=== PATIENT | female | born 1980 | race American Indian/Alaskan Native ===

== ENCOUNTER 2019-03-12 06:17 | Day surgery (SDC) | payer MEDICARE, OTHER ==
[~2019-03-12 06:17] MED LIST: VANCOMYCIN/NS 1 GM/250 ML 1 GM/250 ML BAG IV SCH
[2019-03-12] MEDS ORDERED: ONDANSETRON 4 MG ODT TAB PO PRN (06:46)
[2019-03-12] MEDS ORDERED: HYDROmorphone 1 MG/1 ML INJ IV PRN (06:46)
--- NOTE | 2019-03-12 06:52 | Anesthesia Day of Surgery ---
Anesthesia Day of Surgery - Day of Surgery Patient Examined: Yes Patient H&P Reviewed: Yes Patient is NPO: Yes
--- NOTE | 2019-03-12 06:52 | Anesthesia Consultation ---
Anesthesia Consult and Med Hx Date of service: 03/12/19 - Airway Anesthetic Teeth Evaluation: Good ROM Head & Neck: Adequate Mental/Hyoid Distance: Adequate Mallampati Class: Class II Intubation Access Assessment: Probably Good - Pulmonary Exam CTA: Yes - Cardiac Exam Cardiac Exam: RRR - Pre-Operative Health Status ASA Pre-Surgery Classification: ASA3 Proposed Anesthetic Plan: General, MAC - Pulmonary Hx Smoking: Yes (1/2PPD SINCE '; STOPPED(02/15/2019) FOR SX) Hx Asthma: Yes (PRN INH) - Central Nervous System Hx Back Pain: Yes (NECK-PRN FLEXERIL) Hx Psychiatric Problems: No - Other Systems Hx Alcohol Use: Yes (WINE COOLER) Hx Substance Use: No Hx Cancer: No - Additional Comments Anesthesia Medical History Comments: HIV positive
[2019-03-12] MEDS ORDERED: LACTATED RINGERS 1,000 ML IV SCH (07:00)
[2019-03-12] MEDS ORDERED: BACTERIOSTATIC SODIUM CHLORIDE 0.9% 30 ML VIAL INFILTRATI ONE (07:00)
[2019-03-12] MEDS ORDERED: MIDAZOLAM 2 MG/2 ML INJ IV NR (07:00)
[2019-03-12] MEDS ORDERED: FAMOTIDINE 20 MG TAB PO NR (07:00)
[2019-03-12] MEDS ORDERED: LIDOCAINE MPF (2%) 20 MG/1 ML VIAL 5 ML ONE (07:36)
[2019-03-12] MEDS ORDERED: PROPOFOL 200 MG/20 ML VIAL IV ONE (07:36)
[2019-03-12] MEDS ORDERED: HYDROmorphone 1 MG/1 ML INJ ONE (07:36)
[2019-03-12] MEDS ORDERED: BUPIVACAINE/PF (0.25%) 2.5 MG/ML 30 ML VIAL INFILTRATI ONE (07:38)
[2019-03-12] MEDS ORDERED: LIDOCAINE (1%) 10 MG/1 ML VIAL 20 ML MDV ONE (07:38)
[2019-03-12] MEDS ORDERED: GLYCOPYRROLATE 0.4 MG/2 ML INJ ONE (08:38)
[2019-03-12] MEDS ORDERED: BUPIVACAINE/PF (0.5%) 5 MG/1 ML 30 ML VIAL INFILTRATI ONE ×2 (08:53)
[2019-03-12] MEDS ORDERED: LIDOCAINE (1%) 10 MG/1 ML VIAL 20 ML MDV INFILTRATI ONE ×2 (08:53)
[2019-03-12] MEDS ORDERED: PHENYLEPHRINE/NS 1,000 MCG/10 ML SYRINGE (OR USE) IV ONE (08:59)
[2019-03-12] MEDS ORDERED: ONDANSETRON 4 MG/2 ML INJ ONE (09:00)
--- NOTE | 2019-03-12 09:47 | Operative Report ---
Operative Report Operative Report: Date of Service: March 12, 2019 Preoperative diagnosis: Right Breast Mass - Intraductal Papilloma Postoperative diagnosis: Same Procedure: Right Breast Mass - Intraductal Papilloma Excisional Biopsy Surgeon: Xiomara Rowe M.D. Performance Test Consultant: None Anesthesia: General Findings: Right breast tissue with clip Complications: None Drains: None Estimated blood loss: Minimal Disposition: PACU in good condition Indications for operative procedure: This is a 38-year-old, lady with right breast Intraductal Papilloma. Patient had undergone a recall from her screening mammogram done on 11/20/2018 for a right breast asymmetry. The recall right breast diagnostic mammogram and ultrasound performed on 12/26/2018 showed on mammogram a 5 mm mass in the inferior medial right breast in the posterior depth, 5-6 cm from the nipple. Ultrasound showed a hypoechoic oval, solid mass measuring 0.7 x 0.3 x 0.6 cm. BI-RADS 4. Biopsy performed on 01/03/2019 revealed a right breast intraductal papilloma with florid usual hyperplasia fibrocystic changes with apocrine metaplasia. The pathology results were discussed with the patient who stated she understood and wished to proceed with the excision of the mass. The procedure of right breast mass excisional biopsy was discussed in great detail, including the risks, benefits, alternatives and indications. These included, but were not limited to, bleeding, infection, pain, seroma/hematoma formation, duct distortion, breast asymmetry. Patient was given ample opportunity to ask questions which were answered. She verbalized understanding. An informed consent for a right breast mass excisional biopsy was obtained. Procedure in detail: The patient was taken to the operating room and was placed supine on the operating table. General anesthesia was administered. The right breast and chest were prepped and draped in the normal sterile operative fashion. Timeout was performed. Under ultrasound guidance the mass was localized and borders marked on the skin. A skin crease incision was marked and made. Flaps were raised superficially anterior to the mass. Mass was dissected free from surrounding tissue. The specimen was marked and submitted to pathology for evaluation. Lidocaine/Marcaine mix was infiltrated into surrounding tissues. Hemostasis was obtained. The wound was irrigated and dried. Tissue was approximated with 3-0 vicryl. The skin was closed with 4-0 monocryl suture. Dermabond was placed over incision. Patient tolerated the procedure well. She was awakened, extubated without incident and transferred to the Recovery Room in stable condition.
--- NOTE | 2019-03-12 09:52 | Short Stay Summary ---
Short Stay Documentation Date of service: 03/12/19 - History H&P: obtained from office - Allergies and Medications Current Medications: Allergies diphenhydramine [From Benadryl] Allergy (Verified 03/05/19 12:15) Anaphylaxis Penicillins Allergy (Verified 03/05/19 12:15) Itching Home Medications Medication Instructions Recorded Confirmed Last Taken Type Abacavir/Dolutegravir/Lamivudi 1 each PO QDAY 03/05/19 03/05/19 03/11/19 10:00 History [Triumeq 600-50-300 mg Tablet] Cyclobenzaprine [Flexeril] 10 mg PO QHS 03/05/19 03/05/19 01/28/19 10:00 History Diclofenac Sodium 75 mg PO BID PRN 03/05/19 03/05/19 01/28/19 10:00 History medroxyPROGESTERone ACETATE 150 mg IM Q3M 03/05/19 03/05/19 03/11/19 10:00 History [Medroxyprogesterone Acetate] HYDROcodone/APAP 5-325 [[place] 1 each PO Q6HR PRN #12 tablet 03/12/19 Unknown Rx 5/325] Active Medications Famotidine (Pepcid) 20 mg PO PREOP NR Stop: 03/12/19 23:45 Last Admin: 03/12/19 07:10 Dose: 20 mg Documented by: Hydromorphone HCl (Dilaudid) 0.25 mg IV Q10MIN PRN PRN Reason: Pain, Moderate (4-6) Stop: 03/12/19 15:36 Vancomycin HCl (Vancomycin/Ns 1 Gm/250 Ml) 1 gm in 250 mls @ 125 mls/hr IV PREOP MAYLIN; Protocol Lactated Ringer's (Lactated Ringers) 1,000 mls @ 100 mls/hr IV DIRECT MAYLIN Last Admin: 03/12/19 07:10 Dose: 100 mls/hr Documented by: Midazolam HCl (Versed) 2 mg IV PREOP NR Stop: 03/12/19 23:59 Last Admin: 03/12/19 07:12 Dose: 2 mg Documented by: Ondansetron HCl (Zofran Odt) 4 mg PO ONCE PRN PRN Reason: Nausea And Vomiting - Brief post op/procedure progress note Date of procedure: 03/12/19 Pre-op diagnosis: Right Breast Intraductal Papilloma Post-op diagnosis: same Procedure: Right Breast Mass - Intraductal Papilloma Excisional Biopsy Anesthesia: WATSONA Surgeon: MITUL REDDY Estimated blood loss: minimal Pathology: list Specimen disposition: to lab Condition: stable - Disposition Condition at discharge: Stable Disposition: DC- TO HOME OR SELFCARE Short Stay Discharge Plan Activity: no driving until cleared by PCP Weight Bearing Status: Full Weight Bearing Diet: regular Wound: keep clean and dry, per your surgeon's advice (Can shower after 48 hours; no sitting in standing water - no baths, no pools, no lakes etc) Special Instructions: no heavy lifting Follow up with: MITUL REDDY MD [Staff Physician] - 7 Days Forms: Outpatient Surgery DC Inst. Prescriptions: HYDROcodone/APAP 5-325 [Rogers 5/325] 1 each PO Q6HR PRN #12 tablet PRN Reason: Pain
[2019-03-12 10:32] VITALS: BP 125/75
--- NOTE | 2019-03-12 11:23 | Mammography Report ---
Single right breast specimen radiograph image submitted Indication: Right breast surgical excision Findings/Impression: A single specimen radiograph of reported right breast tissue was submitted for documentation purposes. Images demonstrate a coil shaped biopsy marker located centrally within the tissue. Please see operative notes for specifics. Signer Name: Familia Llanes MD Signed: 03/12/2019 11:18 AM Workstation Name: [id number]
--- NOTE | 2019-03-12 14:19 | Post Anesthesia Evaluation ---
- Post Anesthesia Evaluation Patient Participated: Yes Airway Patent: Yes Stable Respiratory Function: Yes Temp > 96.8F: Yes Pain Manageable: Yes Adequeate Hydration: Yes Anesthesia Complications: No
== END 2019-03-12 10:55 | disposition home or self-care (01) ==
LOC: OR 06:17
PROVIDERS: ATTEND Surgery
DX: D24.1 Benign neoplasm of right breast (principal); N60.81 Other benign mammary dysplasias of right breast; N64.89 Other specified disorders of breast; J45.909 Unspecified asthma, uncomplicated; F17.210 Nicotine dependence, cigarettes, uncomplicated; Z98.51 Tubal ligation status; Z72.89 Other problems related to lifestyle; Z80.0 Family history of malignant neoplasm of digestive organs; Z98.890 Other specified postprocedural states; Z88.0 Allergy status to penicillin; Z79.899 Other long term (current) drug therapy; Z88.8 Allergy status to other drugs, medicaments and biological substances
CPT/HCPCS: 19120; 76098; 88307; J1170; J2250; J2370; J2405; J2704; J3370; J7120

== ENCOUNTER 2020-03-14 18:21 | Observation (INO) | payer MEDICARE ==
--- NOTE | 2020-03-14 18:30 | Event Note ---
ED Screening Note Date of service: 03/14/20 Time: 18:28 ED Screening Note: c/o syncopal episode today states symptoms of epigastric pain and chest pain prior to episode +hormones-on depo denies leg pain/swelling/ cough/hemoptysis, recent long travel, SOB, or hx of DVT/PE This initial assessment/diagnostic orders/clinical plan/treatment(s) is/are subject to change based on patients health status, clinical progression and re- assessment by fellow clinical providers in the ED. Further treatment and workup at subsequent clinical providers discretion. Patient/guardian urged not to elope from the ED as their condition may be serious if not clinically assessed and managed. Initial orders include: labs ekg CXR
[2020-03-14 19:08] LABS: Bacteria,Urine 1+ /HPF (Negative); Bilirubin,Urine NEG (Negative); Blood,Urine NEG (Negative); Color,Urine Yellow (Yellow); Mucus,Urine FEW /HPF
[2020-03-14 19:19] LABS: Basophils # (Auto) 0.1 K/mm3 (0.0-0.1); Basophils % (Auto) 1.1 % (0.0-1.8); Eosinophils # (Auto) 0.1 K/mm3 (0.0-0.4); Eosinophils % (Auto) 2.1 % (0.0-4.3); Hematocrit 40.6 % (30.3-42.9); Hemoglobin 13.5 gm/dl (10.1-14.3); Lymphocytes # (Auto) 1.9 K/mm3 (1.2-5.4); Lymphocytes % (Auto) 36.8 % (13.4-35.0); Mean Corpuscular HGB Conc 33 % (30-34); Mean Corpuscular Volume 105 fl (79-97); Monocytes # (Auto) 0.6 K/mm3 (0.0-0.8); Monocytes % (Auto) 11.9 % (0.0-7.3); Platelet Count 189 K/mm3 (140-440); Red Blood Count 3.87 M/mm3 (3.65-5.03); Red Cell Distribution Width 12.7 % (13.2-15.2)
[2020-03-14 19:29] LABS: Alanine Aminotransferase 35 units/L (7-56); Albumin 4.4 g/dL (3.9-5); BUN/Creatinine Ratio 11; Blood Urea Nitrogen 10 mg/dL (7-17); Calcium 8.8 mg/dL (8.4-10.2); Hemolysis Index 6
--- NOTE | 2020-03-14 19:37 | XRay Report ---
CHEST 2 VIEWS INDICATION / CLINICAL INFORMATION: syncope. COMPARISON: None available. FINDINGS: SUPPORT DEVICES: None. HEART / MEDIASTINUM: No significant abnormality. LUNGS / PLEURA: Hyperinflated lungs. No pneumothorax. ADDITIONAL FINDINGS: No significant additional findings. IMPRESSION: The lungs are hyperinflated. No other significant abnormality is seen Signer Name: Danny Castrejon MD FACR Signed: 03/14/2020 7:32 PM Workstation Name: [id number]
--- NOTE | 2020-03-14 21:16 | Emergency Department Report ---
ED Syncope HPI - General Chief Complaint: Syncope Stated Complaint: PASSED OUT Time Seen by Provider: 03/14/20 20:33 Source: patient Exam Limitations: no limitations - History of Present Illness Initial Comments: Patient is a 39-year-old female that presents emergency room with complaints of a syncopal episode. Patient states her episode happened at 5 PM. Patient states she was sitting in her boyfriend's car at the [employer] drive-through and became lightheaded, dizzy, nauseous and diaphoretic and the patient then passed out. Patient states she was just sitting in the passenger seat waiting for her food. Patient states she had not eaten since 5 PM the previous day. Patient states she is not drinking at a water as well. Patient states that her boyfriend told her that she stared off into space and was shaking during the syncopal episode. Patient states she does not have a history of seizures. Patient denies chest pain or shortness of breath. Patient states she is feeling pretty good at this point. Patient denies recent travel. Patient denies recent international travel. Patient denies exposure to the novel coronavirus. Patient denies sick contacts. Patient denies fever and chills. Patient denies cough. Patient denies diarrhea. Patient denies coming in contact with anybody with symptoms of the novel coronavirus. Patient states she has history of HIV and she is compliant with her medications. Timing/Prior Episodes: no prior history, single episode today Precipitating Factors: Positive: diaphoresis, lightheadedness, nausea Context: sitting Loss of Consciousness: brief (seconds) Current Symptoms: back to normal - Related Data Allergies/Adverse Reactions: Allergies diphenhydramine [From Benadryl] Allergy (Verified 03/14/20 18:25) Anaphylaxis Penicillins Allergy (Verified 03/14/20 18:25) Itching Home Medications: Ambulatory Orders Abacavir/Dolutegravir/Lamivudi [Triumeq 600-50-300 mg Tablet] 1 each PO QDAY 03/05/19 Cyclobenzaprine [Flexeril] 10 mg PO QHS 03/05/19 Diclofenac Sodium 75 mg PO BID PRN 03/05/19 medroxyPROGESTERone ACETATE [Medroxyprogesterone Acetate] 150 mg IM Q3M 03/05/19 HYDROcodone/APAP 5-325 [[place] 5/325] 1 each PO Q6HR PRN #12 tablet 03/12/19 ED Review of Systems ROS: Stated complaint: PASSED OUT Other details as noted in HPI Constitutional: denies: chills, fever Eyes: denies: eye pain, eye discharge, vision change ENT: denies: ear pain, throat pain Respiratory: denies: cough, shortness of breath, wheezing Cardiovascular: denies: chest pain, palpitations Endocrine: no symptoms reported Gastrointestinal: nausea. denies: abdominal pain, vomiting, diarrhea Genitourinary: denies: urgency, dysuria, discharge Musculoskeletal: denies: back pain, joint swelling, arthralgia Skin: denies: rash, lesions Neurological: as per HPI. denies: headache, weakness, paresthesias Psychiatric: denies: anxiety, depression Hematological/Lymphatic: denies: easy bleeding, easy bruising ED Past Medical Hx - Past Medical History Previous Medical History?: Yes Hx Asthma: Yes (PRN INH) Hx HIV: Yes - Surgical History Past Surgical History?: Yes Hx Breast Surgery: Yes (RIGHT CLIP) Additional Surgical History: Tubal ligation - Family History Family history: no significant - Social History Smoking Status: Current Every Day Smoker Substance Use Type: Alcohol - Medications Home Medications: Home Medications Medication Instructions Recorded Confirmed Last Taken Type Abacavir/Dolutegravir/Lamivudi 1 each PO QDAY 03/05/19 03/05/19 03/11/19 10:00 History [Triumeq 600-50-300 mg Tablet] Cyclobenzaprine [Flexeril] 10 mg PO QHS 03/05/19 03/05/19 01/28/19 10:00 History Diclofenac Sodium 75 mg PO BID PRN 03/05/19 03/05/19 01/28/19 10:00 History medroxyPROGESTERone ACETATE 150 mg IM Q3M 03/05/19 03/05/19 03/11/19 10:00 History [Medroxyprogesterone Acetate] HYDROcodone/APAP 5-325 [[place] 1 each PO Q6HR PRN #12 tablet 03/12/19 Unknown Rx 5/325] ED Physical Exam - General Limitations: No Limitations General appearance: alert, in no apparent distress - Head Head exam: Present: atraumatic, normocephalic - Eye Eye exam: Present: normal appearance, PERRL Pupils: Present: normal accommodation - ENT ENT exam: Present: mucous membranes moist - Neck Neck exam: Present: normal inspection - Respiratory Respiratory exam: Present: normal lung sounds bilaterally. Absent: respiratory distress, wheezes, rales - Cardiovascular Cardiovascular Exam: Present: regular rate, normal rhythm. Absent: systolic murmur, diastolic murmur, rubs, gallop - GI/Abdominal GI/Abdominal exam: Present: soft, normal bowel sounds. Absent: distended, tenderness, guarding - Rectal Rectal exam: Present: deferred - Extremities Exam Extremities exam: Present: normal inspection, full ROM. Absent: tenderness - Back Exam Back exam: Present: normal inspection, full ROM. Absent: tenderness - Neurological Exam Neurological exam: Present: alert, oriented X3, CN II-XII intact, normal gait. Absent: abnormal gait - Psychiatric Psychiatric exam: Present: normal affect, normal mood - Skin Skin exam: Present: warm, dry, intact, normal color. Absent: rash ED Course Vital Signs 03/14/20 03/14/20 03/14/20 17:36 18:33 19:08 Temperature 98.2 F Pulse Rate 78 Respiratory 20 Rate Blood Pressure 129/87 132/86 Blood Pressure [Left] O2 Sat by Pulse 95 100 94 Oximetry 03/14/20 03/14/20 03/14/20 20:02 22:01 22:55 Temperature Pulse Rate 78 Respiratory 15 Rate Blood Pressure 127/82 127/82 Blood Pressure 127/82 [Left] O2 Sat by Pulse 100 100 100 Oximetry 03/14/20 03/14/20 03/14/20 23:00 23:11 23:21 Temperature Pulse Rate Respiratory Rate Blood Pressure 132/86 127/82 127/82 Blood Pressure [Left] O2 Sat by Pulse 100 100 100 Oximetry 03/14/20 03/14/20 03/14/20 23:31 23:41 23:51 Temperature Pulse Rate Respiratory Rate Blood Pressure 127/82 127/82 127/82 Blood Pressure [Left] O2 Sat by Pulse 100 100 100 Oximetry 03/15/20 03/15/20 03/15/20 00:01 00:11 00:21 Temperature Pulse Rate Respiratory Rate Blood Pressure 127/82 127/82 127/82 Blood Pressure [Left] O2 Sat by Pulse 100 100 99 Oximetry - Reevaluation(s) Reevaluation #1: I discussed all results with patient. I discussed plan of care with patient. Patient agrees with plan of care and admission. Patient to be admitted to the hospitalist service. 03/14/20 23:42 - Consultations Consultation #1: Hospitalist consulted for admission. Hospitalist to admit patient. 03/14/20 23:42 ED Medical Decision Making - Lab Data Result diagrams: 03/14/20 18:50 03/14/20 18:50 - EKG Data -: EKG Interpreted by Me EKG shows normal: sinus rhythm, axis, intervals, QRS complexes, ST-T waves Rate: normal - Radiology Data Radiology results: report reviewed, image reviewed interpreted by me: Chest x-ray: No pneumonia, no pneumothorax, no foreign body, no osseous fi ndings, no acute findings CHEST 2 VIEWS INDICATION / CLINICAL INFORMATION: syncope. COMPARISON: None available. FINDINGS: SUPPORT DEVICES: None. HEART / MEDIASTINUM: No significant abnormality. LUNGS / PLEURA: Hyperinflated lungs. No pneumothorax. ADDITIONAL FINDINGS: No significant additional findings. IMPRESSION: The lungs are hyperinflated. No other significant abnormality is seen CT HEAD/BRAIN WO CON INDICATION / CLINICAL INFORMATION: Syncope and seizure-like activity. TECHNIQUE: All CT scans at this location are performed using CT dose reduction for ALARA by means of automated exposure control. COMPARISON: None available. FINDINGS: The ventricular system is normal in size and configuration. No focal lesion or mass effect is seen. There is no evidence of intracranial hemorrhage or major vessel occlusion. The calvarium is intact. The visualized paranasal sinuses and mastoid air cells are clear. IMPRESSION: No acute abnormality. - Medical Decision Making Patient is a 39-year-old female presents emergency room with syncopal episode and seizure-like activity. Patient stated that her boyfriend witnessed her sitting in the passenger seat going unconscious and having seizure-like activity. Patient had labs done which were essentially unremarkable. Patient had a head CT which was negative for acute finding. Patient had a chest x-ray which was negative for acute findings. Patient given Keppra and fluids in the ER. Since the patient had possible seizure-like activity, the patient will be admitted to the hospital service for further evaluation treatment and rule out seizure episode. - Differential Diagnosis Seizure-like activity, syncope, dehydration, electrolyte imbalance Critical Care Time: Yes Critical care time in (mins) excluding proc time.: 35 Critical care attestation.: If time is entered above; I have spent that time in minutes in the direct care of this critically ill patient, excluding procedure time. Critical Care Time: 35 minutes ED Disposition Clinical Impression: Seizure-like activity Syncope Qualifiers: Syncope type: unspecified Qualified Code(s): R55 - Syncope and collapse Disposition: DC-09 OP ADMIT IP TO THIS HOSP Is pt being admited?: Yes Does the pt Need Aspirin: No Condition: Critical Time of Disposition: 23:42
[2020-03-14] MEDS ORDERED: levETIRAcetam 1000 MG/NS 0.75% 1,000 MG/100 ML BAG IV ONE (22:06)
[2020-03-14] MEDS ORDERED: SODIUM CHLORIDE 0.9% 1000 ML 1,000 ML IV ONE (22:06)
--- NOTE | 2020-03-14 23:34 | Cat Scan Report ---
CT HEAD/BRAIN WO CON INDICATION / CLINICAL INFORMATION: Syncope and seizure-like activity. TECHNIQUE: All CT scans at this location are performed using CT dose reduction for ALARA by means of automated e xposure control. COMPARISON: None available. FINDINGS: The ventricular system is normal in size and configuration. No focal lesion or mass effect is seen. T here is no evidence of intracranial hemorrhage or major vessel occlusion. The calvarium is intact. Th e visualized paranasal sinuses and mastoid air cells are clear. IMPRESSION: No acute abnormality. Signer Name: Sukhjinder Dimas MD Signed: 03/14/2020 11:30 PM Workstation Name: [id number]
[2020-03-15] MEDS ORDERED: ACETAMINOPHEN 325 MG TAB PO PRN (00:29)
[2020-03-15] MEDS ORDERED: LORazepam 2 MG/ML VIAL IV PRN (00:32)
--- NOTE | 2020-03-15 00:38 | History and Physical Report ---
History of Present Illness Date of examination: 03/15/20 Date of admission: 03/14/20 23:45 Chief complaint: Syncope Questionable seizure History of present illness: 39-year-old female was brought to emergency room with complaints of a syncopal episode and questionable seizure. Patient states she was sitting in her boyfriend's car at the [employer] drive-through at 5 PM and became lightheaded, dizzy, nauseous and diaphoretic and the patient then passed out. Patient states she was just sitting in the passenger seat waiting for her food. Patient states she had not eaten since 5 PM the previous day. Patient states she is not drinking at a water as well. Patient states that her boyfriend told her that she stared off into space and was shaking during the syn copal episode. Patient states she does not have a history of seizures. Patient denies chest pain or shortness of breath. Initial CT scan of the head shows no acute intracranial abnormality. Medications and Allergies Allergies Allergy/AdvReac Type Severity Reaction Status Date / Time diphenhydramine Allergy Anaphylaxis Verified 03/14/20 18:25 [From Benadryl] Penicillins Allergy Itching Verified 03/14/20 18:25 Home Medications Medication Instructions Recorded Confirmed Last Taken Type Abacavir/Dolutegravir/Lamivudi 1 each PO QDAY 03/05/19 03/05/19 03/11/19 10:00 History [Triumeq 600-50-300 mg Tablet] Cyclobenzaprine [Flexeril] 10 mg PO QHS 03/05/19 03/05/19 01/28/19 10:00 History Diclofenac Sodium 75 mg PO BID PRN 03/05/19 03/05/19 01/28/19 10:00 History medroxyPROGESTERone ACETATE 150 mg IM Q3M 03/05/19 03/05/19 03/11/19 10:00 History [Medroxyprogesterone Acetate] HYDROcodone/APAP 5-325 [[place] 1 each PO Q6HR PRN #12 tablet 03/12/19 Unknown Rx 5/325] Review of Systems Cardiovascular: syncope, lightheadedness Neurological: seizures Exam - Constitutional Vitals: Temp Pulse Resp BP Pulse Ox 98.2 F 78 15 127/82 99 03/14/20 18:33 03/14/20 20:02 03/14/20 20:02 03/15/20 00:21 03/15/20 00:21 General appearance: Present: no acute distress, well-nourished - EENT Eyes: Present: PERRL ENT: hearing intact, clear oral mucosa - Neck Neck: Present: supple, normal ROM - Respiratory Respiratory effort: normal Respiratory: bilateral: CTA - Cardiovascular Heart Sounds: Present: S1 & S2. Absent: rub, click - Extremities Extremities: pulses symmetrical, No edema Peripheral Pulses: within normal limits - Abdominal General gastrointestinal: Present: soft, non-tender, non-distended, normal bowel sounds Female genitourinary: Present: normal - Integumentary Integumentary: Present: clear, warm, dry - Musculoskeletal Musculoskeletal: gait normal, strength equal bilaterally - Psychiatric Psychiatric: appropriate mood/affect, intact judgment & insight - Neurologic Neurologic: CNII-XII intact, moves all extremities HEART Score - HEART Score Troponin: Troponin T < 0.010 ng/mL (0.00-0.029) 03/14/20 18:50 Results - Labs CBC & Chem 7: 03/14/20 18:50 03/14/20 18:50 Labs: Laboratory Last Values WBC 5.1 K/mm3 (4.5-11.0) 03/14/20 18:50 RBC 3.87 M/mm3 (3.65-5.03) 03/14/20 18:50 Hgb 13.5 gm/dl (10.1-14.3) 03/14/20 18:50 Hct 40.6 % (30.3-42.9) 03/14/20 18:50 MCV 105 fl (79-97) H 03/14/20 18:50 MCH 35 pg (28-32) H 03/14/20 18:50 MCHC 33 % (30-34) 03/14/20 18:50 RDW 12.7 % (13.2-15.2) L 03/14/20 18:50 Plt Count 189 K/mm3 (140-440) 03/14/20 18:50 Lymph % (Auto) 36.8 % (13.4-35.0) H 03/14/20 18:50 [place] % (Auto) 11.9 % (0.0-7.3) H 03/14/20 18:50 Eos % (Auto) 2.1 % (0.0-4.3) 03/14/20 18:50 Baso % (Auto) 1.1 % (0.0-1.8) 03/14/20 18:50 Lymph # (Auto) 1.9 K/mm3 (1.2-5.4) 03/14/20 18:50 [place] # (Auto) 0.6 K/mm3 (0.0-0.8) 03/14/20 18:50 Eos # (Auto) 0.1 K/mm3 (0.0-0.4) 03/14/20 18:50 Baso # (Auto) 0.1 K/mm3 (0.0-0.1) 03/14/20 18:50 Seg Neutrophils % 48.1 % (40.0-70.0) 03/14/20 18:50 Seg Neutrophils # 2.5 K/mm3 (1.8-7.7) 03/14/20 18:50 Sodium 138 mmol/L (137-145) 03/14/20 18:50 Potassium 3.4 mmol/L (3.6-5.0) L 03/14/20 18:50 Chloride 105.3 mmol/L (98-107) 03/14/20 18:50 Carbon Dioxide 23 mmol/L (22-30) 03/14/20 18:50 Anion Gap 13 mmol/L 03/14/20 18:50 BUN 10 mg/dL (7-17) 03/14/20 18:50 Creatinine 0.9 mg/dL (0.6-1.2) 03/14/20 18:50 Estimated GFR > 60 ml/min 03/14/20 18:50 BUN/Creatinine Ratio 11 % 03/14/20 18:50 Glucose 79 mg/dL (65-100) 03/14/20 18:50 POC Glucose 59 mg/dL (70-105) L 03/14/20 18:30 Calcium 8.8 mg/dL (8.4-10.2) 03/14/20 18:50 Total Bilirubin 0.40 mg/dL (0.1-1.2) 03/14/20 18:50 AST 65 units/L (5-40) H 03/14/20 18:50 ALT 35 units/L (7-56) 03/14/20 18:50 Alkaline Phosphatase 47 units/L (35-129) 03/14/20 18:50 Troponin T < 0.010 ng/mL (0.00-0.029) 03/14/20 18:50 Total Protein 7.1 g/dL (6.3-8.2) 03/14/20 18:50 Albumin 4.4 g/dL (3.9-5) 03/14/20 18:50 Albumin/Globulin Ratio 1.6 % 03/14/20 18:50 Urine Color Yellow (Yellow) 03/14/20 18:52 Urine Turbidity Slightly-cloudy (Clear) 03/14/20 18:52 Urine pH 6.0 (5.0-7.0) 03/14/20 18:52 Ur Specific [place] 1.023 (1.003-1.030) 03/14/20 18:52 Urine Protein 30 mg/dl mg/dL (Negative) 03/14/20 18:52 Urine Glucose (UA) Neg mg/dL (Negative) 03/14/20 18:52 Urine Ketones Neg mg/dL (Negative) 03/14/20 18:52 Urine Blood Neg (Negative) 03/14/20 18:52 Urine Nitrite Neg (Negative) 03/14/20 18:52 Urine Bilirubin Neg (Negative) 03/14/20 18:52 Urine Urobilinogen 2.0 mg/dL (<2.0) 03/14/20 18:52 Ur Leukocyte Esterase Neg (Negative) 03/14/20 18:52 Urine WBC (Auto) 6.0 /HPF (0.0-6.0) 03/14/20 18:52 Urine RBC (Auto) 1.0 /HPF (0.0-6.0) 03/14/20 18:52 U Epithel Cells (Auto) 5.0 /HPF (0-13.0) 03/14/20 18:52 Urine Bacteria (Auto) 1+ /HPF (Negative) 03/14/20 18:52 Urine Mucus Few /HPF 03/14/20 18:52 - Imaging and Cardiology Chest x-ray: image reviewed CT Scan - head: image reviewed Assessment and Plan - Patient Problems (1) Syncope Current Visit: Yes Status: Acute Qualifiers: Syncope type: unspecified Qualified Code(s): R55 - Syncope and collapse Plan to address problem: Admit the patient to the medical telemetry. Cardiac diet. aspirin 81 mg p.o. daily. Lipitor 40 mg p.o. daily. D5 half-normal saline at the rate of 100 cc/h . Due to the serial cardiac enzyme. We also do a echocardiogram. If needed will consult cardiology. Recheck CBC BMP in the morning. Heparin 5000 units subcu every 8 hours for DVT prophylaxis and Protonix 40 mg p.o. daily for GI prophylaxis. (2) Seizure-like activity Current Visit: Yes Status: Acute Plan to address problem: We will put the patient on cardiac diet. D5 half-normal saline at the rate of 100 cc/h. Initial CT scan of the head shows no acute intracranial abnormality. Ativan 1 mg IV every 4 hours as needed. We also order EEG, echocardiogram and MRI of the brain without contrast. Patient is on seizure precaution. If needed will consult neurology in the morning.
[2020-03-15] MEDS ORDERED: D5W/0.45% NACL 1,000 ML IV SCH (01:00)
[2020-03-15 04:53] LABS: Basophils # (Auto) 0.1 K/mm3 (0.0-0.1); Basophils % (Auto) 0.9 % (0.0-1.8); Eosinophils # (Auto) 0.1 K/mm3 (0.0-0.4); Eosinophils % (Auto) 2.3 % (0.0-4.3); Hematocrit 36.1 % (30.3-42.9); Hemoglobin 12.3 gm/dl (10.1-14.3); Lymphocytes # (Auto) 1.3 K/mm3 (1.2-5.4); Lymphocytes % (Auto) 22.2 % (13.4-35.0); Mean Corpuscular HGB Conc 34 % (30-34); Mean Corpuscular Volume 104 fl (79-97); Monocytes # (Auto) 0.6 K/mm3 (0.0-0.8); Monocytes % (Auto) 10.2 % (0.0-7.3); Platelet Count 162 K/mm3 (140-440); Red Blood Count 3.46 M/mm3 (3.65-5.03); Red Cell Distribution Width 12.7 % (13.2-15.2)
[2020-03-15 05:53] LABS: BUN/Creatinine Ratio 9; Blood Urea Nitrogen 8 mg/dL (7-17); Calcium 8.4 mg/dL (8.4-10.2); Hemolysis Index 6
[2020-03-15] MEDS: HEPARIN 5,000 UNIT/1 ML VIAL SUB-Q SCH ×2 (06:35→13:38)
--- NOTE | 2020-03-15 08:30 | Progress Note ---
Assessment and Plan Assessment and plan: (1) Syncope Current Visit: Yes Status: Acute Qualifiers: Syncope type: unspecified Qualified Code(s): R55 - Syncope and collapse Plan to address problem: Admit the patient to the medical telemetry. Cardiac diet. aspirin 81 mg p.o. daily. Lipitor 40 mg p.o. daily. D5 half-normal saline at the rate of 100 cc/h. Due to the serial cardiac enzyme. We also do a echocardiogram. If needed will consult cardiology. Recheck CBC BMP in the morning. Heparin 5000 units subcu every 8 hours for DVT prophylaxis and Protonix 40 mg p.o. daily for GI prophylaxis. (2) Seizure-like activity Current Visit: Yes Status: Acute Plan to address problem: We will put the patient on cardiac diet. D5 half-normal saline at the rate of 100 cc/h. Initial CT scan of the head shows no acute intracranial abnormality. Ativan 1 mg IV every 4 hours as needed. We also order EEG, echocardiogram and MRI of the brain without contrast. Patient is on seizure precaution. If needed will consult neurology in the morning. 03/15/2020 -Blood sugar was 59 on admission and because of syncopal episode is likely hypoglycemia -We will follow the results ordered by admitting physician -Possible discharge today after echo is done History Interval history: Patient was seen and evaluated this morning Patient does not have any syncopal episode after admission, no dizziness. No seizure-like activity. Hospitalist Physical - Physical exam Narrative exam: Not in cardiopulmonary distress. The patient appeared well nourished and normally developed. Vital signs as documented. Head exam is unremarkable. No scleral icterus . Neck is without jugular venous distension, thyromegaly, or carotid bruits. Lungs are clear to auscultation. Cardiac exam reveals regular rate and Rhythm. Abdominal exam reveals normal bowel sounds, nontender, no organomegaly. Extremities are nonedematous and both femoral and pedal pulses are normal. PROFESSOR OF VISUAL ARTS: Alert and oriented 3. No focal weakness. - Constitutional Vitals: Temp Pulse Resp BP Pulse Ox 98.9 F 85 18 123/82 100 03/15/20 07:45 03/15/20 07:45 03/15/20 07:45 03/15/20 07:45 03/15/20 07:45 General appearance: Present: no acute distress, well-nourished HEART Score - HEART Score Troponin: Troponin T < 0.010 ng/mL (0.00-0.029) 03/15/20 06:10 Results - Labs CBC & Chem 7: 03/15/20 04:32 03/15/20 04:32 Labs: Laboratory Last Values WBC 5.8 K/mm3 (4.5-11.0) 03/15/20 04:32 RBC 3.46 M/mm3 (3.65-5.03) L 03/15/20 04:32 Hgb 12.3 gm/dl (10.1-14.3) 03/15/20 04:32 Hct 36.1 % (30.3-42.9) 03/15/20 04:32 MCV 104 fl (79-97) H 03/15/20 04:32 MCH 35 pg (28-32) H 03/15/20 04:32 MCHC 34 % (30-34) 03/15/20 04:32 RDW 12.7 % (13.2-15.2) L 03/15/20 04:32 Plt Count 162 K/mm3 (140-440) 03/15/20 04:32 Lymph % (Auto) 22.2 % (13.4-35.0) 03/15/20 04:32 [place] % (Auto) 10.2 % (0.0-7.3) H 03/15/20 04:32 Eos % (Auto) 2.3 % (0.0-4.3) 03/15/20 04:32 Baso % (Auto) 0.9 % (0.0-1.8) 03/15/20 04:32 Lymph # (Auto) 1.3 K/mm3 (1.2-5.4) 03/15/20 04:32 [place] # (Auto) 0.6 K/mm3 (0.0-0.8) 03/15/20 04:32 Eos # (Auto) 0.1 K/mm3 (0.0-0.4) 03/15/20 04:32 Baso # (Auto) 0.1 K/mm3 (0.0-0.1) 03/15/20 04:32 Seg Neutrophils % 64.4 % (40.0-70.0) 03/15/20 04:32 Seg Neutrophils # 3.7 K/mm3 (1.8-7.7) 03/15/20 04:32 Sodium 145 mmol/L (137-145) D 03/15/20 04:32 Potassium 3.9 mmol/L (3.6-5.0) 03/15/20 04:32 Chloride 114.0 mmol/L (98-107) H 03/15/20 04:32 Carbon Dioxide 20 mmol/L (22-30) L 03/15/20 04:32 Anion Gap 15 mmol/L 03/15/20 04:32 BUN 8 mg/dL (7-17) 03/15/20 04:32 Creatinine 0.9 mg/dL (0.6-1.2) 03/15/20 04:32 Estimated GFR > 60 ml/min 03/15/20 04:32 BUN/Creatinine Ratio 9 % 03/15/20 04:32 Glucose 87 mg/dL (65-100) 03/15/20 04:32 POC Glucose 59 mg/dL (70-105) L 03/14/20 18:30 Calcium 8.4 mg/dL (8.4-10.2) 03/15/20 04:32 Total Bilirubin 0.40 mg/dL (0.1-1.2) 03/14/20 18:50 AST 65 units/L (5-40) H 03/14/20 18:50 ALT 35 units/L (7-56) 03/14/20 18:50 Alkaline Phosphatase 47 units/L (35-129) 03/14/20 18:50 Troponin T < 0.010 ng/mL (0.00-0.029) 03/15/20 06:10 Total Protein 7.1 g/dL (6.3-8.2) 03/14/20 18:50 Albumin 4.4 g/dL (3.9-5) 03/14/20 18:50 Albumin/Globulin Ratio 1.6 % 03/14/20 18:50 Urine Color Yellow (Yellow) 03/14/20 18:52 Urine Turbidity Slightly-cloudy (Clear) 03/14/20 18:52 Urine pH 6.0 (5.0-7.0) 03/14/20 18:52 Ur Specific [place] 1.023 (1.003-1.030) 03/14/20 18:52 Urine Protein 30 mg/dl mg/dL (Negative) 03/14/20 18:52 Urine Glucose (UA) Neg mg/dL (Negative) 03/14/20 18:52 Urine Ketones Neg mg/dL (Negative) 03/14/20 18:52 Urine Blood Neg (Negative) 03/14/20 18:52 Urine Nitrite Neg (Negative) 03/14/20 18:52 Urine Bilirubin Neg (Negative) 03/14/20 18:52 Urine Urobilinogen 2.0 mg/dL (<2.0) 03/14/20 18:52 Ur Leukocyte Esterase Neg (Negative) 03/14/20 18:52 Urine WBC (Auto) 6.0 /HPF (0.0-6.0) 03/14/20 18:52 Urine RBC (Auto) 1.0 /HPF (0.0-6.0) 03/14/20 18:52 U Epithel Cells (Auto) 5.0 /HPF (0-13.0) 03/14/20 18:52 Urine Bacteria (Auto) 1+ /HPF (Negative) 03/14/20 18:52 Urine Mucus Few /HPF 03/14/20 18:52 [place]/IV: Voiding Method Toilet Active Medications - Current Medications Current Medications: Generic Name Dose Route Start Last Admin Trade Name Freq PRN Reason Stop Dose Admin Acetaminophen 650 mg 03/15/20 00:29 Acetaminophen 325 Mg Tab PO Q6H PRN Pain, Mild (1-3) Aspirin 81 mg 03/16/20 10:00 Aspirin 81 Mg Tab Chew PO QDAY [facility] Atorvastatin Calcium 40 mg 03/15/20 22:00 Atorvastatin 40 Mg Tab PO QHS [facility] Heparin Sodium (Porcine) 5,000 unit 03/15/20 06:00 03/15/20 06:35 Heparin 5,000 Unit/1 Ml Vial SUB-Q 5,000 unit Q8HR MAYLIN Administration Dextrose/Sodium Chloride 1,000 mls @ 100 mls/hr 03/15/20 01:00 D5/0.45ns IV DIRECT MAYLIN Lorazepam 1 mg 03/15/20 00:32 Lorazepam 2 Mg/Ml Vial IV Q4H PRN Agitation Sodium Chloride 10 ml 03/15/20 00:29 Sodium Chloride 0.9% 10 Ml Flush Syringe IV PRN PRN LINE FLUSH
--- NOTE | 2020-03-15 10:44 | Discharge Summary ---
Providers - Providers Date of Admission: 03/14/20 23:45 Date of discharge: 03/15/20 Attending physician: JEZ ANTOINE MD 03/15/20 Consult to Cardiac Rehabilitation [CONS] Routine Reason For Exam: Phase I Primary care physician: EDI COORDINATOR Hospitalization Reason for admission: Syncopal episode, hypoglycemia, seizure-like activity Condition: Stable Pertinent studies: CT head, echo Hospital course: 39-year-old female was brought to emergency room with complaints of a syncopal episode and questionable seizure. Patient states she was sitting in her boyfriend's car at the [employer] drive-through at 5 PM and became lightheaded, dizzy, nauseous and diaphoretic and the patient then passed out. Patient states she was just sitting in the passenger seat waiting for her food. Patient states she had not eaten since 5 PM the previous day. Patient states she is not drinking at a water as well. Patient states that her boyfriend told her that she stared off into space and was shaking during the syncopal episode. Patient states she does not have a history of seizures. Patient denies chest pain or shortness of breath. Initial CT scan of the head shows no acute intracranial abnormality. Hospital course Patient was admitted to the floor. Patient's glucose level was 59 on admission. Likely cause of syncopal episode is hypoglycemia. She was treated according to hypoglycemia protocol and patient was feeling well no dizziness or syncopal episode. CT head was done in the emergency department and was negative. Echo was done and was unremarkable. Patient discharged home in a stable condition. Management plan was discussed with the patient and was in agreement with the plan of care. Disposition: DC-01 TO HOME OR SELFCARE Time spent for discharge: 25 minutes - Discharge Diagnoses (1) Seizure-like activity Status: Acute (2) Syncope Status: Acute Qualifiers: Syncope type: unspecified Qualified Code(s): R55 - Syncope and collapse (3) Hypoglycemia Status: Acute Core Measure Documentation - Palliative Care Palliative Care/ Comfort Measures: Not Applicable - Core Measures Any of the following diagnoses?: none Exam - Physical Exam Narrative exam: Not in cardiopulmonary distress. The patient appeared well nourished and normally developed. Vital signs as documented. Head exam is unremarkable. No scleral icterus . Neck is without jugular venous distension, thyromegaly, or carotid bruits. Lungs are clear to auscultation. Cardiac exam reveals regular rate and Rhythm. Abdominal exam reveals normal bowel sounds, nontender, no organomegaly. Extremities are nonedematous and both femoral and pedal pulses are normal. OUTSIDE CUTTER HAND: Alert and oriented 3. No focal weakness. - Constitutional Vitals: Temp Pulse Resp BP Pulse Ox 98.9 F 85 18 123/82 100 03/15/20 07:45 03/15/20 07:45 03/15/20 07:45 03/15/20 07:45 03/15/20 07:45 Plan Activity: no restrictions Weight Bearing Status: Full Weight Bearing Diet: regular Follow up with: PRIMARY CAREMD [Primary Care Provider] - 3-5 Days
[2020-03-15 15:47] VITALS: BP 123/71
[2020-03-16] MEDS ORDERED: ASPIRIN 81 MG TAB CHEW PO SCH (10:00)
[2020-03-16] MEDS ORDERED: FLU VACC QUAD 2020-2021 (6 months +)/PF 60 0.5 ML SYRINGE IM ONE (12:00)
== END 2020-03-15 17:30 | disposition home or self-care (01) ==
LOC: ED 18:21 → 4A 23:45
PROVIDERS: ADMIT Hospitalist; ATTEND Internal Medicine
DX: R55 Syncope and collapse (principal); R56.9 Unspecified convulsions; J45.909 Unspecified asthma, uncomplicated; E16.2 Hypoglycemia, unspecified; F17.210 Nicotine dependence, cigarettes, uncomplicated; Z21 Asymptomatic human immunodeficiency virus [HIV] infection status; Z98.51 Tubal ligation status; Z98.890 Other specified postprocedural states
CPT/HCPCS: 36415; 70450; 71046; 80048; 80053; 81001; 82962; 84484; 85025; 93005; 93306; 96361; 96372; 96374; 99291; G0378; J1644; J1953; J7030